=== PATIENT | female | born 1995 | race Asian ===

== ENCOUNTER 2018-05-24 19:01 | Emergency (ER) | payer SELFPAY ==
[~2018-05-24] VITALS: Ht 170.2 cm; Wt 63.5 kg
[2018-05-24 19:09] VITALS: BP 112/64
[2018-05-24] MEDS ORDERED: IBUPROFEN 800 MG TABLET PO STA (19:44)
[2018-05-24] MEDS ORDERED: CARBAMIDE PEROXIDE EAR DROPS 6.5%, 15ML ONE (20:01)
[2018-05-24] MEDS ORDERED: NEO/POLY/HC EAR SUSP 10ML RIGHT EAR SCH (21:00)
== END 2018-05-24 20:44 | disposition home or self-care (01) ==
LOC: ED 20:37
DX: H60.501 Unspecified acute noninfective otitis externa, right ear (principal); H60.11 Cellulitis of right external ear
CPT/HCPCS: 99283